=== PATIENT | female | born 1985 | race Two or more races ===

== ENCOUNTER 2018-09-27 11:39 | Emergency (ER) | payer OTHER ==
[2018-09-27] MEDS ORDERED: cloNIDine HCL 0.1 MG TAB PO ONE (13:45)
[2018-09-27 14:20] VITALS: BP 156/111
[2018-09-27] MEDS ORDERED: METOPROLOL TARTRATE 50 MG TAB PO ONE (14:45)
== END 2018-09-27 15:33 | disposition home or self-care (01) ==
LOC: ER 11:43
DX: S50.01XA Contusion of right elbow, initial encounter (principal); I10 Essential (primary) hypertension; W01.0XXA Fall on same level from slipping, tripping and stumbling without subsequent striking against object, initial encounter; Y93.89 Activity, other specified; Y99.8 Other external cause status; Y92.89 Other specified places as the place of occurrence of the external cause
CPT/HCPCS: 73080

== ENCOUNTER 2023-09-12 18:23 | Emergency (ER) | payer OTHER ==
[~2023-09-12] VITALS: Ht 149.9 cm; Wt 67.2 kg
[2023-09-12] MEDS ORDERED: BACIOIN15 TOP (20:35)
[2023-09-12] MEDS ORDERED: ACET500T58 PO (20:35)
[2023-09-12] MEDS ORDERED: ACETAMINOPHEN 325 MG TAB PO ONE (20:45)
[2023-09-12 21:25] VITALS: BP 132/74; PULSE 67; RESP 16; TEMP 98; O2SAT 99
== END 2023-09-12 20:29 | disposition home or self-care (01) ==
LOC: ER 18:23
DX: T20.20XA Burn of second degree of head, face, and neck, unspecified site, initial encounter (principal); Z79.899 Other long term (current) drug therapy; X16.XXXA Contact with hot heating appliances, radiators and pipes, initial encounter; Y93.89 Activity, other specified; Y92.89 Other specified places as the place of occurrence of the external cause; Y99.8 Other external cause status